=== PATIENT | female | born 1975 | race Caucasian/White ===

== ENCOUNTER 2019-04-23 15:27 | Emergency (ER) | payer BC, SELFPAY ==
[2019-04-23 15:30] VITALS: BP 105/55; PULSE 80; RESP 18; TEMP 36.8; O2SAT 99
--- NOTE | 2019-04-23 15:30 | PC.NURSE ---
Per EMS, seizure activity was full body tonic clonic in nature.
--- NOTE | 2019-04-23 15:53 | ED.SEIZURE ---
HPI - Seizure General Chief Complaint: Seizure Stated Complaint: AMB Time Seen by Provider: 04/23/19 15:53 Source: patient and EMS Mode of arrival: EMS Limitations: no limitations History of Present Illness HPI Narrative: Patient was at work and had a seizure while at her desk. She has a history of a traumatic brain injury several years ago. She takes Dilantin for her seizure medications. She has been taking them regularly. Emergency ENT is happened to be at the [place] and witnessed the seizure and transported the patient immediately. Patient vomited and lost control of her bladder. She is currently mildly confused. MD complaint: seizure Onset (ago): minute(s) (20) Description of Episode: tonic-clonic movement, bladder incontinence, post-event confusion and other (Vomited) Duration of episode: 2 -: minutes(s) Witnessed: Yes - by Bystander Trauma: No Seizure History: Yes Place: work Possible Precipitating Event: none Associated symptoms: denies other symptoms Treatments prior to arrival: benzodiazepines Related Data Home Medications Medication Instructions Recorded Confirmed phenytoin [Dilantin Infatabs] 50 mg PO DAILY 04/23/19 04/23/19 phenytoin sodium extended 300 mg PO DAILY 04/23/19 04/23/19 [Dilantin Extended] Allergies Allergy/AdvReac Type Severity Reaction Status Date / Time meperidine Allergy Unknown UNKNOWN Verified 10/10/17 06:22 REACTION turkey AdvReac Severe THROAT Verified 10/10/17 06:22 SWELLING; GET OVERHEATED AND PASS OUT Milk Containing Products AdvReac Mild VOMITING/DI Verified 10/10/17 06:22 ARRHEA Exam Const: General: cooperative, comfortable, well developed, anxious and tired appearing Nutritional Appearance: average body habitus and well nourished Orientation/consciousness: oriented to person, oriented to time and confused (Mild) Limitations: no limitations HENMT: Head: normal to inspection, normocephalic and atraumatic Ears: hearing grossly normal bilaterally General nose exam: external nose normal Face and sinus: normal facial exam Mouth: Yes oral mucosae normal, Yes lip normal and Yes moist mucous membranes Teeth and gingiva: dentition normal Eyes: General: appearance normal, both eyes and all related structures Alignment and Position: alignment normal Periorbital: periorbital findings normal Eyelids: eyelids normal Conjunctivae: conjunctivae normal Sclera: sclerae normal Pupils: PERRL EOM: EOM intact bilaterally Neck: Neck: normal visual inspection and full ROM Resp: Effort & Inspection: normal respiratory effort and able to speak in complete sentences Auscultation: clear to auscultation bilaterally Course Vital Signs Vital signs: Vital Signs Temperature 36.8 C 04/23/19 15:30 Pulse Rate 80 04/23/19 15:30 Respiratory Rate 18 04/23/19 15:30 Blood Pressure 105/55 L 04/23/19 15:30 Pulse Oximetry 99 04/23/19 15:30 Temperature 36.8 C 04/23/19 15:30 Pulse Rate 72 04/23/19 18:30 Respiratory Rate 20 04/23/19 18:30 Blood Pressure 110/65 04/23/19 18:30 Pulse Oximetry 96 04/23/19 18:30 MDM - Seizure MDM Narrative Medical decision making narrative: I discussed with the patient and family regarding her seizures. I offered admission to the hospital for observation. Patient declined. She is much more alert and interactive at discharge. She understands that she should call her neurologist to discuss the dosage of her Dilantin. Differential Diagnosis Differential diagnosis: Likely intractable seizure disorder, generalized seizure and epileptic seizure Medical Records Attestation: I reviewed the patient's medical records. Lab Data Attestation: I reviewed the patient's lab results. Result diagrams: 04/23/19 16:13 04/23/19 16:13 Labs: Lab Results 04/23/19 04/23/19 04/23/19 Range/Units 16:13 16:13 16:13 WBC 7.4 (4.8-10.8) K/mm3 RBC 4.10 L (4.20-5.40) M/mm3
--- NOTE | 2019-04-23 16:00 | PC.NURSE ---
In with Dr Ndiaye as acid changer for his assessment of pt. Pt now awake, answering some questions, but confused. Pt emotional, anxious, family states this is normal after pt has a seizure. Daughter states it has been approx 4 years since last known seizure.
[2019-04-23 16:17] LABS: Basophils Absolute Auto 0.04 K/mm3 (0.00-0.10); Basophils Percent Auto 0.5 % (0.0-1.0); Eosinophils Absolute Auto 0.03 K/mm3 (0.02-0.50); Eosinophils Percent Auto 0.4 % (1.0-6.0); Hematocrit 38.9 % (35.0-49.0); Hemoglobin 12.9 g/dL (12.0-15.0); Immature Granulocyte Absolute 0.03 K/mm3 (0.00-0.00); Immature Granulocyte Percent A 0.4 % (0.0-0.0); Lymphocytes Absolute Auto 0.89 K/mm3 (1.10-4.50); Lymphocytes Percent Auto 12.1 % (18.0-42.0); Mean Corpuscular HGB Conc 33.2 g/dL (32.0-36.0); Mean Corpuscular Hemoglobin 31.5 pg (27.0-31.0); Mean Corpuscular Volume 94.9 fL (78.0-102.0); Mean Platelet Volume 9.4 fl (9.2-11.8); Monocytes Percent Auto 2.7 % (2.0-11.0); Neutrophils Absolute Auto 6.2 K/mm3 (1.7-7.2); Neutrophils Percent Auto 83.9 % (50.0-70.0); Platelet Count Result 179 K/mm3 (150-420); Red Cell Distribution Width 12.9 % (11.6-14.4); White Blood Count 7.4 K/mm3 (4.8-10.8)
[2019-04-23 16:33] LABS: Alanine Aminotransferase 16 U/L (14-59); Albumin Level 4.1 g/dL (3.4-5.0); Alkaline Phosphatase 101 U/L (46-116); Anion Gap 9.7 mmol/L (7-16); Aspartate Amino Transferase 18 U/L (15-37); Bilirubin,Total 0.2 mg/dL (0.00-1.00); Blood Urea Nitrogen 6 mg/dL (7-18); Calcium 8.8 mg/dL (8.5-10.1); Carbon Dioxide 29 mmol/L (21-32); Chloride 106 mmol/L (98-108); Estimated CRCL calculation 79 ml/min; Estimated Glomerular Filt Rate > 60; Glucose 117 mg/dL (70-99); Osmolality Calculated 290 mOsm/kg (285-295); Phenytoin Dilantin 6 ug/mL (10-20); Potassium 3.7 mmol/L (3.5-5.1); Sodium 141 mmol/L (136-145); Total Protein 7.3 g/dL (6.4-8.2)
[2019-04-23 16:45] LABS: Lactic Acid Reflex 1.5 mmol/L (0.4-2.0)
--- NOTE | 2019-04-23 16:51 | PC.NURSE ---
Pt remains confused but improved from previous assessment. Able to follow instructions. Straight cath performed for UA/UDS as ordered. Pt tolerated well.
[2019-04-23 16:53] VITALS: BP 103/50; PULSE 80; RESP 18; O2SAT 100
[2019-04-23 16:55] LABS: Appearance Urine Clear (Clear); Bilirubin Urine Negative (Negative); Color Urine Yellow (Yellow); Glucose Urine UA Negative (Negative); Ketones Urine Negative (Negative); Leukocyte Esterase Ur Trace LEU/UL (Negative); Nitrate Urine Negative (Negative); Protein Urine 1+ (Negative); Specific Grav Ur >= 1.030 (1.010-1.020); Urobilinogen Urine 0.2 mg/dL (0.2-1.0); pH Urine 5.5 (5.0-8.0)
[2019-04-23] MEDS: ONDANSETRON INJ 4 MG/2 ML VIAL IV PUSH ×2 (17:00→17:32)
--- NOTE | 2019-04-23 17:00 | PC.NURSE ---
Pt c/o nausea at this time. Dr Ndiaye aware. Zofran 4mg IVP given as ordered.
[2019-04-23 17:01] LABS: Add Urine Microscopic? YES; Amphetamine Screen Urine NEG. (Negative); Barbiturate Screen Urine NEG. (Negative); Benzodiazepines Screen Urine POS. (Negative); Blood Urine Trace (Negative); Cannabinoid Screen Urine POS. (Negative); Cocaine Screen Urine NEG. (Negative); Methadone Screen Urine NEG. (Negative); Opiate Screen Urine NEG. (Negative); Phencyclidine Screen Urine NEG. (Negative); RBC Urine 0-2 /hpf (0-2); Squamous Epithelial Cell Urine Many /hpf (Few); WBC Urine 0-3 /hpf (0-3)
[2019-04-23 17:02] LABS: Amorphous Sediment Urine Few; Bacteria Urine 1+ /hpf
[2019-04-23] MEDS: FOSPHENYTOIN SODIUM 100 MG PE/2 ML VIAL 800 MG IV PUSH (17:25)
--- NOTE | 2019-04-23 17:25 | PC.NURSE ---
In to start Fosphenytoin infusion. Pt's family reports pt had a mini seizure in which she became pale and was displaying rhythmic movements of flower hands. states she has displayed this type of activity in the past. SpO2 85-88% at this time. Attempting to place O2 via NC when pt began vomiting. Dr Ndiaye aware of family's report, SpO2, and active vomiting. Orders rcvd for repeat dose of Zofran. After vomiting stopped, SpO2 increased to 100%. Fosphenytoin infusion started. Will continue to monitor.
--- NOTE | 2019-04-23 17:25 | PC.NURSE ---
Fosphenytoin administered as IVPB: Fosphenytoin 800mg in NS 100mL infused over 15 minutes.
--- NOTE | 2019-04-23 17:40 | PC.NURSE ---
Fosphenytoin infusion complete at this time.
[2019-04-23 17:55] VITALS: BP 116/64; PULSE 74; RESP 18; O2SAT 96
--- NOTE | 2019-04-23 18:19 | PC.NURSE ---
Dr Ndiaye at bedside talking with pt and family.
[2019-04-23 18:30] VITALS: BP 110/65; PULSE 72; RESP 20; O2SAT 96
== END 2019-04-23 18:30 | disposition home or self-care (01) ==
PROVIDERS: Emergency Provider Emergency Medicine; PCP Family Medicine
DX: G40.909 Epilepsy, unspecified, not intractable, without status epilepticus (principal)
CPT/HCPCS: 36415; 51701; 80053; 80185; 80307; 81001; 83605; 85025; 96374; 96375; 96376; 99283; 99284; J2405; Q2009